=== PATIENT | female | born 1940 | race Caucasian/White ===

== ENCOUNTER 2016-10-16 07:05 | Inpatient (IN) | payer MEDICARE ==
[2016-10-16] VITALS (20 sets, daily range): BP systolic 111–161; BP diastolic 47–77; PULSE 65–85; RESP 12–20; O2SAT 92–100
[~2016-10-16] VITALS: Ht 160 cm; Wt 86.9 kg
--- NOTE | 2016-10-16 07:02 | ED.REPORT ---
HPI-Chest Pain 40 and Over Date of Service October 16, 2016 ED Provider: Justcie Slade DO A 76 year old female with a history of hypertension, high cholesterol, uncontrolled diabetes, and balloon angioplasty to the ostial RCA is brought to the ED via EMS due to chest pain. The pt woke this morning slightly more fatigued than usual, then began experiencing crushing substernal chest pain while standing in the kitchen. This was soon accompanied by nausea. EMS was called and a field EKG taken in the pt's home indicated a STEMI. The pt has taken four 81 mg aspirin but did not take her medications last night, including her insulin. Nursing Notes Stated Complaint: CHEST PAIN Nursing Notes Reviewed: Yes Allergies: Coded Allergies: Penicillins (Verified Allergy, Severe, RASH, 10/07/14) Sulfa (Sulfonamide Antibiotics) (Verified Allergy, Severe, RASH, 10/07/14) clindamycin (Unverified Allergy, Mild, 10/07/14) Uncoded Allergies: SULFA (Allergy, Severe, RASH, 04/05/09) UNKNOWN (Allergy, Mild, 09/09/14) TOOK ANTIBIOTIC, UNSURE OF NAME, GOT RASH. PT WILL CONFIRM Scheduled Amlodipine (Amlodipine) 10 Mg Tablet 10 MG PO HS Aspirin (Aspir 81) 81 Mg Tablet.dr 81 MG PO HS Atenolol (Atenolol) 25 Mg Tablet 25 MG PO HS Atorvastatin Calcium (Atorvastatin Calcium) 20 Mg Tablet 20 MG PO HS Benazepril (Benazepril) 40 Mg Tablet 40 MG PO HS Calcium Carbonate/Vitamin D3 (Calcium 500 + D Tablet) 1 Each Tablet 2 EACH PO HS Celecoxib (Celebrex) 200 Mg Capsule 200 MG PO HS Cetirizine HCl (Zyrtec) 10 Mg Tablet 10 MG PO DAILY Cholecalciferol (Vitamin D3) (Vitamin D3) 5,000 Unit Tablet 10,000 UNIT PO HS Cranberry Fruit (Cranberry) 400 Mg Tablet 400 MG PO HS Folic Acid (Folic Acid) 0.4 Mg Tablet 0.4 MG PO every other day Hydrochlorothiazide (Hydrochlorothiazide) 12.5 Mg Capsule 12.5 MG PO HS Insulin Glargine (Lantus U100 Solostar Insulin Pen) 100 Unit/1 Ml Insuln.pen Unknown Dose SUBQ QPM-INSULIN Insulin Lispro (HumaLOG U100 Insulin Pen) 100 Unit/1 Ml Insuln.pen Unknown Dose SUBQ TID-INSULIN Blood Sugar Lispro Correction <151 0 units 151-175 1 unit 176-200 2 units 201-225 3 units 226-250 4 units 251-275 5 units 276-300 6 units 301-325 7 units 326-350 8 units 351-375 9 units 376-400 10 units >400 12 units Check blood sugars before meals and at bedtime. Use correction factor only before meals. Levothyroxine (Levothyroxine) 112 Mcg Tablet 112 MCG PO DAILY Magnesium (Magnesium) 250 Mg Tablet 250 MG PO BID Metformin ER (Metformin ER) 500 Mg Tab.er.24 1,000 MG PO DAILYWD Nortriptyline (Nortriptyline) 10 Mg Capsule 30 MG PO HS Ubidecarenone (Coq-10) 30 Mg Capsule 60 MG PO DAILY Scheduled PRN Albuterol HFA (Proair HFA) 8.5 Gm Hfa.aer.ad 2 PUFFS IH Q4 PRN PRN For Wheezing Meclizine HCl (Meclizine HCl) 25 Mg Tablet 25 MG PO TID PRN PRN For Dizziness Nitroglycerin SL (Nitrostat) 0.4 Mg Tab.subl 0.4 MG SL Q5MIN PRN PRN For Chest Pain General Time Seen by MD: 07:01 Chief Complaint Chest pain Hx Obtained From: Patient, EMS Arrived By: Ambulance Sudden in Onset?: Yes Onset Occurred: 31 - 45 minutes ago Symptom Duration: Since onset Recent Healthcare: No recent hospitalization, Recent doctor visit Similar Sx Previous: No Past Medical History Past Medical History hypertension asthma high cholesterol UTI hyperlipidemia obesity obstructive sleep apnea tuberculosis uncontrolled diabetes depression arthritis Past Surgical History rotational arthrectomy to the ostial RCA balloon angioplasty to ostial RCA 2015 bilateral arthroscopy right wrist bilateral bunionectomies Reports: Cataract surgery Smoking History Former Smoker Ambulatory Status Independent Review of Systems Respiratory: Denies: Non-productive cough Cardiovascular: Reports: Chest pain GI: Reports: Nausea Musculoskeletal: Denies: Back pain Skin: Denies Rash Complete sys rev & neg: except as marked. Physical Exam Initial Vital Signs Vital Signs (First) Date Time Temp Pulse Resp B/P Pulse Ox O2 Delivery O2 Flow Rate FiO2 10/16/16 07:24 36.4 75 20 161/66 100 Nasal Cannula 10/16/16 07:29 2 Initial VS: Reviewed General/Constitutional: Awake, Alert Distress / Hydration: Positive: Distress moderate Appearance / Presentation: Positive: Obese Respiratory / Chest: Atraumatic, Breath sounds NL, Breath sounds = bilat, No respiratory distress Cardiovascular: Heart rate NL, Regular rhythm, Heart sounds NL Abdomen: Atraumatic, Soft, Non-tender Neck: Atraumatic, Supple, Full range of motion Back: Atraumatic, Full range of motion Lower Extremity / Pelvis / MS: Atraumatic, Full range of motion, No edema Skin: Atraumatic, Color NL, No rash, Warm, Dry Neurologic: Oriented X3, Speech NL, No motor deficits, No sensory deficits Psychiatric: Affect NL, Mood NL Head / Eyes: Atraumatic, Normocephalic, PERRL, EOMI ENT: Atraumatic, Airway patent, Mucous membranes moist Upper Extremity / MS: Atraumatic, Full range of motion Interpretation & Diagnostics Lab Results Interpretation Result Diagram: 10/16/16 0707 10/16/16 0707 Test 10/16/16 07:07 10/16/16 07:25 White Blood Count 7.6th/mm3 (3.8-10.1) Red Blood Count 4.64mil/mm3 (3.90-5.20) Hemoglobin 12.5g/dL (12.0-15.6) Hematocrit 39.1% (35.0-46.0) Mean Corpuscular Volume 84.3fL (81-100) Mean Corpuscular Hemoglobin 26.9pg (27.0-35.0) Mean Corpuscular Hemoglobin Concent 32.0% (32.0-37.0) Red Cell Distribution Width 16.6% (12.3-15.4) Platelet Count 159bil/L (150-400) Neutrophils (%) (Auto) 62.2% (40-74) Lymphocytes (%) (Auto) 26.5% (14-46) Monocytes (%) (Auto) 6.4% (4-12) Eosinophils (%) (Auto) 4.2% (0-5) Basophils (%) (Auto) 0.3% (0-3) Sodium Level 139mEq/L (134-144) Potassium Level 4.2mEq/L (3.5-5.2) Chloride Level 100mEq/L (97-108) Carbon Dioxide Level 22mmol/L (18-29) Blood Urea Nitrogen 18mg/dL (8-27) Creatinine 1.11mg/dL (0.57-1.00) Estimat Glomerular Filtration Rate 68mL/min (>59) Glucose Level 420mg/dL (60-99) Calcium Level 9.5mg/dL (8.5-10.1) Magnesium Level 1.8mg/dL (1.6-2.6) Total Bilirubin 0.3mg/dL (0.0-1.2) Aspartate Amino Transf (AST/SGOT) 18U/L (0-50) Alanine Aminotransferase (ALT/SGPT) 18U/L (0-32) Alkaline Phosphatase 113U/L (25-165) Troponin T 0.010ug/L (0.0-0.011) Total Protein 7.6g/dL (6.4-8.4) Albumin 4.4g/dL (3.4-5.0) Prothrombin Time 10.3sec (8.1-12.5) Prothromb Time International Ratio 0.96ratio Activated Partial Thromboplast Time 22.2sec (22.8-33.0) ECG Interpretation ECG Interpretation: normal sinus rhythm with a rate of 82 ST elevation in II, III, and aVF ST depression in I and aVL consistent with STEMI Time: 07:11 Interpreted by: ED physician X-Ray Chest Interpretation Chest Xray Interpretation: no acute findings Interpretation / Wet Read by: Wet read ED physician Re-Eval/Medical Decision Med Decision/Clinical Course Acute ST elevation [place]. Will be sent to [facility]. Code STEMI and activation of Oyster Washer was initiated immediately upon evaluation of prehospital EKG. Source of Hx: Old records Time of Eval: 07:15 Re-Evaluation/Progress Note: Pt rechecked and medication options are discussed. Time of Eval: 07:19 Re-Evaluation/Progress Note: Pt rechecked, who is stable. Plan for admission to [facility] is discussed. Time of Eval: 07:25 Re-Evaluation/Progress Note: Pt rechecked, who is still experiencing mild pain and appears unfomfortable. Heart rate is 70 and blood pressure is 137/57. Time of Eval: 07:28 Re-Evaluation/Progress Note: Pt rechecked, who is stable. The plan for [facility] admission is further discussed. Consultation #1: Referral / Consult Name: Marcos Moore MD Consulted With: Cardiology Call Returned at: 07:01 Note: Spoke to Dr. Moore, business initiatives manager, regarding pt's case. Dr. Moore is unable to see the pt and recommends consulting with Dr. Espinal. Consultation #2: Referral / Consult Name: Nikki Rowe MD Consulted With: Cardiology Requested Call at: 07:02 Corn Picker: Did not return call Note: Paged Dr. Rowe and attempted cell phone contact without response. Consultation #3: Referral / Consult Name: Marcos Moore MD Consulted With: Cardiology Call Returned at: 07:11 Note: Spoke with Dr. Moore, who agrees to see the pt since Dr. Espinal has not responded. Consultation #4: Referral / Consult Name: Mitchell Underwood MD Consulted With: Cardiology Requested Call at: 07:11 Note: Paged Dr. Underwood, cardiology, and attempted cell phone contact without response. Consultation #5: Referral / Consult Name: Mitchell Underwood MD Consulted With: Cardiology Requested Call at: 07:19 Note: Paged Dr. Underwood and attempted cell phone contact without response. Consultation #6: Referral / Consult Name: Mitchell Underwood MD Consulted With: Cardiology Requested Call at: 07:26 Note: Overhead page for Dr. Underwood. Consultation #7: Referral / Consult Name: Mitchell Underwood MD Consulted With: Cardiology Call Returned at: 07:33 Note: Spoke with Dr. Underwood, cardiology, regarding pt's case. Dr. Underwood will take the pt to the [facility]. Consultation #8: Referral / Consult Name: Mitchell Underwood MD Consulted With: Cardiology Call Returned at: 07:37 Note: Dr. Underwood has spoken to Dr. Moore. Dr. Moore is on his way and Dr. Underwood requests that the pt be sent to the [facility]. Counseled Regarding: Diagnosis, Lab results, Need for admission Discharge & Departure Primary Impression: STEMI (ST elevation myocardial infarction) Involved coronary artery: unspecified coronary artery Qualified Code: I21.3 - ST elevation (STEMI) myocardial infarction of unspecified site Disposition: ADMITTED TO HOSPITAL Discharge Condition All VS Reviewed: Yes Condition: Stable Referrals: Whitney Bobby (PCP) Crit Care Except Billable Proc Time Spent: 30-74 minutes Services Performed: Patient management by me, Time spent at bedside, Reviewing test results, Reviewing imaging, Discussing patient care, Documentation in record Critical Care Notes: See MDM Scribe Attestation Portions of this note were transcribed by Mary Gaston. I, Dr. Slade personally performed the history, physical exam and medical decision-making; I reviewed and confirmed the accuracy of the information in the transcribed note. Signed by: Tamiko Alatorre, 10/16/2016 and 0811. copies to: Whitney Bobby Timothy S DO October 16, 2016 07:02 MARY GASTON October 16, 2016 07:09
[~2016-10-16 07:05] MED LIST: ALBU8.5H2 IH; AMLO10TA3 PO; ASPI-628 PO; ATEN25TA PO; ATOR20TA65 PO; BENA40TA2 PO; CALC-721 PO; CELE200C PO; CETI10TA18 PO; CHOL500011 PO; CRAN400T4 PO; FOLI0.4T2 PO; HYDR12.5 PO; Heparin 5,000 Unit/mL Inj ONE; INSU100I13 SUBQ; INSU100I18 SUBQ; LEVO112T4 PO; MAGN250T PO; MECL-107 PO; METF-495 PO; NITR0.4T SL; NORT10CA PO; Ondansetron 2 mg/mL 2 mL Inj ONE; UBID30CA12 PO
[2016-10-16 07:11] LABS: BASOPHILS % (AUTO) 0.3 % (0-3); EOSINOPHILS % (AUTO) 4.2 % (0-5); MONOCYTES % (AUTO) 6.4 % (4-12); Mean Corpuscular Hemoglobin 26.9 pg (27.0-35.0); Mean Corpuscular Volume 84.3 fL (81-100); NEUTROPHILS % (AUTO) 62.2 % (40-74); Platelet Count 159 bil/L (150-400)
[2016-10-16] MEDS ORDERED: Insulin LISPRO 300 Unit/3 mL Inj SUBQ ONE (07:20)
[2016-10-16] MEDS ORDERED: Heparin 1,000 Units/500 mL NS Premix IV ONE (07:25)
[2016-10-16] MEDS ORDERED: Nitroglycerin 50,000 mcg/250 mL D5W Premix IV ONE (07:25)
[2016-10-16] MEDS ORDERED: 0.9% Sodium Chloride 250 ML ONE (07:25)
[2016-10-16] MEDS ORDERED: Heparin 1,000 Unit/mL 10 mL Inj ONE (07:25)
[2016-10-16] MEDS ORDERED: 0.9% Sodium Chloride 1,000 ML ONE (07:25)
[2016-10-16] MEDS ORDERED: Heparin 5,000 Units/500 mL NS Premix IV ONE (07:25)
[2016-10-16] MEDS ORDERED: NitroPRUSSIDE 25,000 mCg/mL 2 mL Inj IV ONE (07:25)
[2016-10-16 07:34] LABS: INR 0.96 ratio
[2016-10-16 07:35] LABS: TROPONIN T 0.01 ug/L (0.0-0.011)
[2016-10-16 07:46] LABS: Magnesium 1.8 mg/dL (1.6-2.6)
[2016-10-16] MEDS ORDERED: fentaNYL-PF 50 mCg/mL 2 mL Inj ONE (07:48)
--- NOTE | 2016-10-16 08:56 | DI95 ---
[address] [address] INTERVENTIONAL CARDIAC CATHETERIZATION PATIENT: DEANDRE CLIFTON : 1940 MR#: [id number] ADMIT: 10/16/2016 JOB ID: [id number] DATE: 10/16/2016 PROCEDURES: 1. Selective right and left coronary angiography. 2. Percutaneous intervention on the circumflex. 3. Left heart catheterization. INDICATION: Acute inferior [place]. PROCEDURAL DETAILS: The reader is referred to the procedure log as are the coders. Briefly 6-Azeri system right femoral approach, standard Ramses catheters and a wire guide for intervention. ANGIOGRAPHIC FINDINGS: Heavy calcification of the AV groove was noted. Moderate calcification of the coronaries is also noted on fluoroscopy. 1. Left main showed no significant disease. 2. LAD is a moderate caliber transapical vessel. In its mid to distal segment, it has about a 40% lesion. The rest of the vessel has mild luminal irregularities. No critical stenosis is noted. 3. Circumflex is a large caliber vessel. It is totally occluded past the take-off of the second obtuse marginal branch. 4. The ramus intermedius is a small caliber vessel. It has a 40%-50% lesion in its proximal segment. 5. Right coronary artery is a dominant vessel in the sense that it gives off the PDA. Most of the posterolateral circulation is off the circumflex. It has an ostial 70%-80% lesion followed by a poststenotic aneurysmal area which is fairly small in length. The rest of the vessel has mild disease. 6. Left heart catheterization revealed an LVEDP of 25. There was no gradient upon pullback. INTERVENTIONAL REPORT: We then proceeded ahead with an intervention on the circumflex. A Voda guide was used. A Run-through wire was used to cross this lesion. We were successfully able to get into the fourth obtuse marginal branch. The third obtuse marginal branch is a small caliber, about a 1.5 mm vessel. This was seen on prior angiograms. At one time, we were able to open up this vessel as well, but because of balloon angioplasty, there was distal embolization and this branch showed BOB-1 flow throughout. The second obtuse marginal branch also showed BOB-1 flow, which responded to additional ballooning. The second obtuse marginal branch was wired and then balloon angioplasty with a 2.0 balloon was done in the ostium. Following that, there was good BOB-3 flow in the second OM branch. Finally we stented distally with a 2.5 x 12 mm Xience drug-coated stent and in an overlapping manner, a second 3.0 x18 mm stent was deployed. The very proximal part of the 3.0 stent was post dilated to 3.5 mm with a noncompliant balloon. They were delivered at 16 atmospheres. Final angiographic results were good. In summary, successful intervention on the infarct-related circumflex. She has ostial RCA lesion and this can be dealt with at a later date.
--- NOTE | 2016-10-16 09:53 | CONS ---
[address] [address] CONSULTATION REPORT PATIENT: DEANDRE CLIFTON : 1940 MR#: [id number] ADMIT: 10/16/2016 JOB ID: [id number] DATE OF SERVICE: 10/16/2016 REQUESTING PHYSICIAN: Justice Elizondo DO CHIEF COMPLAINT: Chest discomfort. HISTORY OF PRESENT ILLNESS: This is a 73-year-old lady with history of diabetes, hypertension and dyslipidemia, as well as prior history of tobacco use, presented to the emergency department complaining of chest discomfort. An [place] EKG suggested an inferior [place]. I was contacted for an urgent intervention. I saw the patient in the public works laborer. The patient was somewhat irritable, did not exactly remember when her chest discomfort started. Upon talking to her son, it appears that she had not been feeling well for the last two days. On Saturday, her [id number] noted her to be very sick, so it is possible that the patient started infarcting a few days ago. She described the pain as a pressure in her chest that went into her neck. It was heavier than anything she has experienced previously. She finally decided to seek medical attention. An EKG done in the ED confirmed inferior [place]. PAST MEDICAL HISTORY: Diabetes, hypertension, dyslipidemia. MEDICATIONS AT HOME: As far as I can tell, she was on aspirin and atenolol, amlodipine, benazepril, atorvastatin, albuterol inhaler, calcium, and folic acid. Of note, she was given 600 mg of Plavix and 5000 of heparin, along with aspirin in the ED. ALLERGIES: She is allergic to SULFA and PENICILLIN. PERSONAL HISTORY: She has a history of 20 pack year of smoking. She quit smoking greater than 20 years ago. FAMILY HISTORY: Negative for premature coronary artery disease. REVIEW OF SYSTEMS: Comprehensive review of system was done and what is as per HPI. Pertinent negatives are there is no history of GI or bleeding. No upcoming surgeries. EXAMINATION: Overweight lady, in moderate distress. Pulse 80, blood pressure 180/70. Neck: Supple. No JVD. Chest: Clear. Heart: Anteriorly, heart sounds S1, S2, regular. No gallops. A soft ejection systolic murmur is heard at the upper sternal border. Abdomen: Soft. Extremities negative for CCE. Femoral pulses are 2+. Distal pulses are diminished. SEWAGE RETICULATION DRAFTING OFFICER: Alert and oriented. LABORATORY DATA: We did not have access to her current labs, but previous labs suggests a normal creatinine. ASSESSMENT AND PLAN: This lady presents with an acute inferior myocardial infarction. She probably has been having stuttering angina for the last few days. She had an intervention on her circumflex. She has already been started on dual antiplatelet therapy. I will be admitting her to the cardiac floor. Dr. Underwood should be assuming her care, and the hospitalist team will get involved as well.
[2016-10-16] MEDS ORDERED: 0.9% Sodium Chloride 250 ML BOLUS IV PRN (11:10)
[2016-10-16] MEDS ORDERED: Albuterol 2.5 mg/3 mL Inhalation Solution NEB ONE (11:10)
[2016-10-16] MEDS ORDERED: Atropine 1 mg/10 mL (Code) Syringe IVPUSH PRN (11:10)
[2016-10-16] MEDS ORDERED: 0.9% Sodium Chloride 400 ML (4 HRS) IV ONE (11:10)
[2016-10-16] MEDS ORDERED: Ondansetron 2 mg/mL 2 mL Inj IVPUSH PRN (11:10)
[2016-10-16] MEDS ORDERED: Sodium Chloride LOK Flush 10 mL Syringe IVFLUSH PRN (11:10)
--- NOTE | 2016-10-16 11:15 | NUR ---
transferred to [facility] with shoes and no other belongings. pt is a&ox3 at this time and denies pain/nausea. right groin is dry and intact, with very minimal oozing. there is a small half dollar size nodule that is present on both sides and appears to be anatomical in nature. md aware. bedside report to junior penn rn.
--- NOTE | 2016-10-16 12:36 | NUR ---
Arrived to unit Pt arrived to unit at 1145. Transferred by bed. Denied pain. Groin site was checked with Lakesha SERNA, no signs of bleeding. Vital signs were checked. At 1215 she was assisted in sitting up, groin site was checked at again. Then the patient was assisted with walking to the bathroom, again groin site was checked when she returned to bed. No signs of bleeding/oozing at groin site. Pt complained of dizziness when she got up, put back on 2L of O2, she reported feeling better after returning to bed. Blood sugar was 344, paged.
[2016-10-16] MEDS: metFORMIN ER 500 mg ER24 Tablet PO SCH (17:30)
[2016-10-16] MEDS ORDERED: Dextrose 50% Water 50 mL Inj IV PRN (17:35)
[2016-10-16] MEDS: Insulin Human REGular 300 Unit/3 mL Inj SUBQ SCH ×2 (18:10→22:20)
--- NOTE | 2016-10-16 18:25 | NUR ---
Blood sugar Blood sugar was 344 before lunch. MD was paged. Patient ate lunch and afterwards her blood sugar was checked and was 294. Awaiting response from MD. Blood sugar checked before dinner and was 264. Order for insulin was obtained and 3 units of regular insulin was given as per sliding scale. Continue to monitor.
[2016-10-16] MEDS ORDERED: Albuterol 2.5 mg/3 mL Inhalation Solution NEB PRN (20:00)
--- NOTE | 2016-10-16 23:08 | PCM.HPMED ---
Subjective Date of Service October 16, 2016 Primary Provider: Admitting Physician: Mitchell Underwood MD Primary Care Physician: Whitney Bobby Attending Physician: Mitchell Underwood MD Chief Complaint: Chest pain History of Present Illness: The patient is a pleasant 76-year-old white female with a history of hypertension, high cholesterol, uncontrolled diabetes and history of balloon angioplasty to the ostial RCA who rarely sleeps at night and was up early in the morning getting ready to clean cantaloupe for lunch for her family. Patient then felt more fatigued and he usual and began experiencing crushing substernal chest pain after drinking some cold water while standing in the kitchen. The patient felt she was going to pass out so she called 911 and called her son Magan. The patient took 481 mg aspirin and EMS services brought the patient to [facility] emergency room. The patient was found to have an acute inferior wall myocardial infarction and EKG was taken for an urgent cardiac catheterization by Dr. Haro the patient underwent successful intervention on the infarct-related circumflex. She also has an ostial RCA lesion and this was felt to be best dealt with at a later date. The patient was admitted to the PCC unit and the hospitalist service was consulted for evaluation and treatment recommendations. Review of Systems: Dental: Patient is in no apparent distress at this time and in general has been feeling hungry with a headache throughout the day until 3:00. Now she is feeling much better. HEENT: Patient had a headache earlier, patient has no diplopia, patient has had changes in her vision in her left eye, and the cause is gone undiagnosed. Patient has had bilateral cataract surgery. Patient has no problems with their ears, nose or throat. Patient has no known dental problems. Patient has no pharyngitis or history of thrush. Neck: Patient has degenerative disease and arthritis in her neck with pain shooting down to her shoulder and left arm. Patient has neuropathy in her hands which she attributes to her neck. Pulmonary: Patient has dyspnea on exertion, with no shortness of breath at rest , no cough, no expectoration of sputum. Patient has no pleurisy. Patient has no chest pain at present time after cardiac catheterization. Patient has no history of asthma or COPD. Cardiovascular: Patient has no chest pain. Patient has no history of heart murmur. Patient has no palpitations. Patient has no history of myocardial infarction. Patient has no history of coronary artery disease. Gastrointestinal: Patient has no history of hepatitis A, B or C. Patient has no history of peptic ulcer disease. Patient has no history of gastroesophageal reflux disease. Patient has no history of nausea, vomiting, or diarrhea. Patient has no history of hematemesis, hematochezia, or melena. Patient has no history of colitis. Renal: Patient has no history of kidney disease. No history of kidney stones. Genitourinary: Patient has no history of dysuria, frequency, or incontinence. Patient has no previous history of genitourinary problems. Musculoskeletal: Patient has no history of muscular skeletal problems. Neurologic: Patient has no history of stroke, no history of seizure, no history of TIA. Psychiatric: Patient has no history of psychiatric problems. The remainder of the entire review of systems was reviewed with patient and is as mentioned above otherwise negative. Allergies Coded Allergies: Penicillins (Verified Allergy, Severe, RASH, 10/07/14) Sulfa (Sulfonamide Antibiotics) (Verified Allergy, Severe, RASH, 10/07/14) clindamycin (Unverified Allergy, Mild, 10/07/14) Uncoded Allergies: SULFA (Allergy, Severe, RASH, 04/05/09) UNKNOWN (Allergy, Mild, 09/09/14) TOOK ANTIBIOTIC, UNSURE OF NAME, GOT RASH. PT WILL CONFIRM Home Medications Scheduled Amlodipine (Amlodipine) 10 Mg Tablet 10 MG PO HS Aspirin (Aspir 81) 81 Mg Tablet.dr 81 MG PO HS Atenolol (Atenolol) 25 Mg Tablet 25 MG PO HS Atorvastatin Calcium (Atorvastatin Calcium) 20 Mg Tablet 20 MG PO HS Benazepril (Benazepril) 40 Mg Tablet 40 MG PO HS Calcium Carbonate/Vitamin D3 (Calcium 500 + D Tablet) 1 Each Tablet 2 EACH PO HS Celecoxib (Celebrex) 200 Mg Capsule 200 MG PO HS Cetirizine HCl (Zyrtec) 10 Mg Tablet 10 MG PO DAILY Cholecalciferol (Vitamin D3) (Vitamin D3) 5,000 Unit Tablet 10,000 UNIT PO HS Cranberry Fruit (Cranberry) 400 Mg Tablet 400 MG PO HS Folic Acid (Folic Acid) 0.4 Mg Tablet 0.4 MG PO every other day Hydrochlorothiazide (Hydrochlorothiazide) 12.5 Mg Capsule 12.5 MG PO HS Insulin Glargine (Lantus U100 Solostar Insulin Pen) 100 Unit/1 Ml Insuln.pen Unknown Dose SUBQ QPM-INSULIN Insulin Lispro (HumaLOG U100 Insulin Pen) 100 Unit/1 Ml Insuln.pen Unknown Dose SUBQ TID-INSULIN Blood Sugar Lispro Correction <151 0 units 151-175 1 unit 176-200 2 units 201-225 3 units 226-250 4 units 251-275 5 units 276-300 6 units 301-325 7 units 326-350 8 units 351-375 9 units 376-400 10 units >400 12 units Check blood sugars before meals and at bedtime. Use correction factor only before meals. Levothyroxine (Levothyroxine) 112 Mcg Tablet 112 MCG PO DAILY Magnesium (Magnesium) 250 Mg Tablet 250 MG PO BID Metformin ER (Metformin ER) 500 Mg Tab.er.24 1,000 MG PO DAILYWD Nortriptyline (Nortriptyline) 10 Mg Capsule 30 MG PO HS Ubidecarenone (Coq-10) 30 Mg Capsule 60 MG PO DAILY Scheduled PRN Albuterol HFA (Proair HFA) 8.5 Gm Hfa.aer.ad 2 PUFFS IH Q4 PRN PRN For Wheezing Meclizine HCl (Meclizine HCl) 25 Mg Tablet 25 MG PO TID PRN PRN For Dizziness Nitroglycerin SL (Nitrostat) 0.4 Mg Tab.subl 0.4 MG SL Q5MIN PRN PRN For Chest Pain PMH Hypertension Asthma High cholesterol Hyperlipidemia Obesity: Uncontrolled diabetes 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 Patient is always had negative chest x-rays for TB screening. Patient denies the following even though they are part of her computerized record: She denies ever having been diagnosed with obstructive sleep apnea She denies ever having clinical depression Surgical History Patient had a rotational arthrectomy to the ostial RCA Patient had balloon angioplasty to the ostial RCA in 2014 Patient had bilateral arthroscopy of both knees Patient had a growth removed from her right wrist patient had bilateral bunionectomies, 1 on each. Patient had bilateral cataract surgery. Family History Patient's mother at the age of 40. During childbirth she developed bowel rupture and peritonitis. The patient's father in his 60s at the age of 66 or 67 from a cerebrovascular accident. Patient had 3 brothers who one the oldest from lung cancer one from COPD and one from an AVM in his brain that ruptured The patient had 6 sisters 4 of which have . One of older age, one from COPD and myocardial infarction, one after , one in a motor vehicle accident at the age of 19 The patient has 2 sisters who are alive. One in [place] who has heart disease and has had a pacemaker and has had atrial fibrillation. One in [place] who has multiple problems including depression, anxiety, fibromyalgia, tremor, glaucoma, history of meningitis and history of smoking. 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 She then quit.) Smoking Status: Former Smoker Living Arrangement: Alone Additional Information Patient was born in [place], [place]. [place]. However, her father developed tuberculosis in was placed in a sanitarium in [place]. At that time the patient's uncle took her and her siblings back to [place]. When patient's father got out of the sanitarium he brought the family back to [place] [facility]. Patient went to high school in [place] and graduated. She went to [employer] to be collagen in [employer] college getting a degree in social work when she was in her 40s. She was stated on mom up until that time. 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 Her had a myocardial infarction at the age is 36 and had 2 coronary artery bypass graft surgeries and ended up having a heart transplant and at the age of 66 and 2005. The patient has been a since then and lives alone in [place] [facility]. Exam Vital Signs Vital Sign - Last Date Time Temp Pulse Resp B/P Pulse Ox O2 Delivery O2 Flow Rate FiO2 10/16/16 21:55 Supplement Oxygen 10/16/16 21:55 37.0 85 20 150/77 96 10/16/16 15:37 2.00 Exam General: Patient is in no apparent distress. HEENT: Head is atraumatic and normocephalic. Eyes: Pupils are equally round and reactive to light and accommodation. Extraocular muscles are intact. Sclera are white, anicteric. Subconjunctival mucosa is pink. Ears and nose are unremarkable. Oropharynx: There is no mucosal lesions, there is no thrush, there is no pharyngitis. Neck: Is supple, there are no nodes, or masses or tenderness. Chest: Is clear to auscultation and percussion. There are no rales, rhonchi, wheezes or rubs. Heart: Rate, rhythm is regular. There is a 2/6 systolic ejection murmur heard best at the left sternal border. There is no rub or gallop. Abdomen: Good bowel sounds are present. Abdomen is obese, soft, nontender, no organomegaly or masses were appreciated. Extremities: Are symmetrical and well perfused. There is no edema, there is no cellulitis, no rash. Neurologic: There are no focal neurological deficits. Cranial nerves II through XII are intact. There are no sensory or motor deficits. Psychiatric: Patients mood is calm and shows no sign of agitation. Genital: Deferred Rectal: Deferred Lab and Diagnostics Result Diagram: 10/16/1670610/16/16706 Assessment & Plan The patient is a pleasant 76-year-old white female with a history of hypertension, high cholesterol, uncontrolled diabetes and history of balloon angioplasty to the ostial RCA who rarely sleeps at night and was up early in the morning getting ready to clean cantSpavistae for lunch for her family. Patient then felt more fatigued and he usual and began experiencing crushing substernal chest pain after drinking some cold water while standing in the kitchen. The patient felt she was going to pass out so she called 911 and called her son Magan. The patient took 481 mg aspirin and EMS services brought the patient to [facility] emergency room. The patient was found to have an acute inferior wall myocardial infarction and EKG was taken for an urgent cardiac catheterization by Dr. Haro the patient underwent successful intervention on the infarct-related circumflex. She also has an ostial RCA lesion and this was felt to be best dealt with at a later date. The patient was admitted to the PCC unit and the hospitalist service was consulted for evaluation and treatment recommendations. # Acute inferior wall myocardial infarction, present at the time of admission. Active - Status post successful intervention on the infarct-related circumflex artery - Patient also has an ostial RCA lesion which cardiology feels need to be dealt with at a later date. - Post intervention care and stenting per cardiology. I have discussed case with Dr. Underwood - Continue telemetry monitoring # Hypertension - Continue cardiac meds per Dr. Underwood # Hyperlipidemia - Continue statin # Uncontrolled diabetes - Diabetic diet - Sliding-scale insulin coverage # Tobacco abuse - She will be encouraged to quit tobacco # History of asthma - Close observation - We will continue albuterol treatments. Thank you very much for this very interesting consultation. We will follow. Disposition: Patient has had an acute myocardial infarction and is likely to be here more than 2 mid dates and therefore was admitted as an inpatient. Pain Evaluation: Adequate Pain Control GI Prophylaxis: Not indicated VTE Prophylaxis: Other (as per cardiology) Resuscitation Status: CPR: Attempt Resuscitation Serg Milner MD October 16, 2016 23:08
[2016-10-17] VITALS (7 sets, daily range): BP systolic 113–135; BP diastolic 62–76; PULSE 72–110; RESP 16–20; O2SAT 93–98
--- NOTE | 2016-10-17 05:55 | NUR ---
Tele Pt converted to Afib HR 110's to 120's around 0300 and confirmed by EKG. Pt asymptomatic with no CP or SOB. notified and orders for 25mg metoprolol given and administered. Pt currently in Afib HR 90's to 110's. notified again and awaiting reply. VSS.
[2016-10-17] MEDS ORDERED: Diltiazem 5 mg/mL 5 mL Inj IV ONE (07:35)
[2016-10-17] MEDS ORDERED: UBIDECARENONE 60 MG PO SCH (08:30)
[2016-10-17] MEDS ORDERED: ASPI-973 PO (08:43)
[2016-10-17] MEDS: Insulin Human REGular 300 Unit/3 mL Inj SUBQ SCH ×4 (08:43→21:47)
[2016-10-17] MEDS ORDERED: CETI-343 PO (08:45)
[2016-10-17] MEDS ORDERED: MECL-114 PO (08:45)
--- NOTE | 2016-10-17 09:34 | DRSVH ---
PROCEDURE: X-RAY CHEST ONE VIEW, PORTABLE ([id number]) INDICATIONS: CHEST PAIN TECHNIQUE: One view of the chest was acquired. COMPARISON: [facility], , CHEST 1VW (PORTABLE), 11/07/2010, 16:02. FINDINGS: Surgical changes and devices: None. Lungs and pleura: No pleural effusions or pneumothorax. Interstitial pulmonary opacities inferiorly consistent with scarring, atelectasis, or less likely infection. No lobar consolidation.. Mediastinum: Mediastinal contours appear normal. Heart size is normal. Bones and chest wall: No suspicious bony lesions. Overlying soft tissues appear unremarkable. IMPRESSION: Bibasilar interstitial opacities consistent with scarring, fibrosis, less likely early in fection. Otherwise normal chest. Dictated by: Tello Yee M.D. on 10/16/2016 at 8:22 Approved by: Tello Yee M.D. on 10/16/2016 at 8:24
--- NOTE | 2016-10-17 10:40 | PCM.PNCARD ---
Subjective Date of service October 17, 2016 Chief Complaint Recent inferior STEMI History of Present Illness Patient still feels a little sore from her CP yesterday but feels much better in comparison to yesterday morning. She apparently she went into afib with a little RVR around 245am and was given IV diltiazem and eventually converted back to sinus mechanism. Constitutional: Denies: Fever, Sweats ENT: Denies: Ear Discharge, Ear Pain Eyes: Denies: Blurred Vision, Conjunctive Inflammation Cardiovascular: Reports: Chest Pain (soreness more than pressure/pain), Irregular Heart Rate, Palpitations, Rapid Heart Rate, Denies: SOB on Exertion Respiratory: Denies: Cough, Shortness of Breath, Snoring Gastrointestinal: Denies: Abdominal Pain, Black tarry stools, Blood in stool ( red) Genitourinary: Denies: No burning or pain with urination Neurological: Denies: Change in LOC, Confusion, Dizziness Endocrine: Reports: Blood Glucose Review Exam Vital Signs Vital Sign - Last Date Time Temp Pulse Resp B/P Pulse Ox O2 Delivery O2 Flow Rate FiO2 10/17/16 03:58 36.6 110 20 135/74 93 Room Air 10/16/16 15:37 2.00 Intake and Output 10/16/16 10/16/16 10/17/16 Cumulative From/Thru 15:00 23:00 07:00 10/16/16 07:24 - 10/17/16 05:37 Intake Total 400 ml 313 ml 713 ml Output Total 900 ml 900 ml Balance 400 ml -587 ml -187 ml Intake Oral 313 ml 313 ml IV Total 400 ml 400 ml Output Urine Total 900 ml 900 ml # Bowel Movements 0 0 General: Pleasant Cooperative Moderately obese Skin: Warm & dry to touch Head: Normocephalic Eye: EOMS intact Ears, Nose & Throat: Ears no gross abnormalities Nose no gross abnormalities Neck: Nuchal obesity:JVP assess difficult Chest: Clear auscultation w/o rales/wheeze Cardiac: No murmurs, gallops or rubs Regular rhythm Abdomen: No bruits Obese Neurological: Alert & oriented Psychological: Affect & interaction appropriate Lab and Diagnostics Labs CBC Test 10/16/16 07:07 White Blood Count 7.6th/mm3 (3.8-10.1) Red Blood Count 4.64mil/mm3 (3.90-5.20) Hemoglobin 12.5g/dL (12.0-15.6) Hematocrit 39.1% (35.0-46.0) Mean Corpuscular Volume 84.3fL (81-100) Mean Corpuscular Hemoglobin 26.9pg (27.0-35.0) Mean Corpuscular Hemoglobin Concent 32.0% (32.0-37.0) Red Cell Distribution Width 16.6% (12.3-15.4) Platelet Count 159bil/L (150-400) Neutrophils (%) (Auto) 62.2% (40-74) Lymphocytes (%) (Auto) 26.5% (14-46) Monocytes (%) (Auto) 6.4% (4-12) Eosinophils (%) (Auto) 4.2% (0-5) Basophils (%) (Auto) 0.3% (0-3) CMP Test 10/16/16 07:07 10/17/16 03:00 Hemoglobin A1c 7.9% Total Bilirubin 0.3mg/dL Aspartate Amino Transf (AST/SGOT) 18U/L Alanine Aminotransferase (ALT/SGPT) 18U/L Alkaline Phosphatase 113U/L Troponin T 0.010ug/L Total Protein 7.6g/dL Albumin 4.4g/dL Sodium Level 138mEq/L Potassium Level 4.4mEq/L Chloride Level 102mEq/L Carbon Dioxide Level 23mmol/L Blood Urea Nitrogen 10mg/dL Creatinine 0.92mg/dL Estimat Glomerular Filtration Rate 85mL/min Glucose Level 208mg/dL Calcium Level 9.2mg/dL Magnesium Level 1.8mg/dL Result Diagram: 10/16/16 0707 10/17/16 0300 Additional Diagnostics: INTERVENTIONAL CARDIAC CATHETERIZATION PATIENT: DEANDRE CLIFTON : 1940 MR#: [id number] ADMIT: 10/16/2016 JOB ID: [id number] DATE: 10/16/2016 PROCEDURES: 1. Selective right and left coronary angiography. 2. Percutaneous intervention on the circumflex. 3. Left heart catheterization. INDICATION: Acute inferior MA. PROCEDURAL DETAILS: The reader is referred to the procedure log as are the coders. Briefly 6-Liberian system right femoral approach, standard Ramses catheters and a wire guide for intervention. ANGIOGRAPHIC FINDINGS: Heavy calcification of the AV groove was noted. Moderate calcification of the coronaries is also noted on fluoroscopy. 1. Left main showed no significant disease. 2. LAD is a moderate caliber transapical vessel. In its mid to distal segment, it has about a 40% lesion. The rest of the vessel has mild luminal irregularities. No critical stenosis is noted. 3. Circumflex is a large caliber vessel. It is totally occluded past the take-off of the second obtuse marginal branch. 4. The ramus intermedius is a small caliber vessel. It has a 40%-50% lesion in its proximal segment. 5. Right coronary artery is a dominant vessel in the sense that it gives off the PDA. Most of the posterolateral circulation is off the circumflex. It has an ostial 70%-80% lesion followed by a poststenotic aneurysmal area which is fairly small in length. The rest of the vessel has mild disease. 6. Left heart catheterization revealed an LVEDP of 25. There was no gradient upon pullback. INTERVENTIONAL REPORT: We then proceeded ahead with an intervention on the circumflex. A Voda guide was used. A Run-through wire was used to cross this lesion. We were successfully able to get into the fourth obtuse marginal branch. The third obtuse marginal branch is a small caliber, about a 1.5 mm vessel. This was seen on prior angiograms. At one time, we were able to open up this vessel as well, but because of balloon angioplasty, there was distal embolization and this branch showed BOB-1 flow throughout. The second obtuse marginal branch also showed BOB-1 flow, which responded to additional ballooning. The second obtuse marginal branch was wired and then balloon angioplasty with a 2.0 balloon was done in the ostium. Following that, there was good BOB-3 flow in the second OM branch. Finally we stented distally with a 2.5 x 12 mm Xience drug-coated stent and in an overlapping manner, a second 3.0 x18 mm stent was deployed. The very proximal part of the 3.0 stent was post dilated to 3.5 mm with a noncompliant balloon. They were delivered at 16 atmospheres. Final angiographic results were good. In summary, successful intervention on the infarct-related circumflex. She has ostial RCA lesion and this can be dealt with at a later date. Assessment & Plan Problems: (1) ST elevation myocardial infarction (STEMI) of inferoposterior wall Plan: Resolved. S/P MADDISON x2 to LCx/OM artery. Echo is pending. Patient's heart meds have been changed to metoprolol tartrate, lisinopril, ASA, and clopidogrel. Patient needs to ambulate in hallway today and if she does not have any further significant arrhythmias overnight then she may go home tomorrow. She will need to follow up with Dr. Lao in 3-4 weeks. I will follow up on her echo and if there is any significant abnormalities that would warrant changes with her discharge meds then I will add an addendum to today's progress note. She also has residual RCA ostial stenosis which can be dealt with as an outpatient as per Dr. Moore. Discharge meds: Metoprolol tartrate 25 mg BID ASA 81 mg once a day Plavix 75 mg once a day Atorvastatin 40 mg po qhs Lisinopril 5 mg once a day Please give at least 2 months supply. Status: Resolved ICD Code: I21.19 (2) Paroxysmal a-fib Plan: Resolved. No prior hx of afib. Could have been 2/2 to recent STEMI. No anticoagulation for now but she might deserve an outpatient court monitor to see if she has recurrent afib. If she does, then would recommend warfarin or NOAC since she does have significant risk factors for cardioembolic stroke ( Age, DM, HTN, ?EF echo pending). Status: Resolved ICD Code: I48.0 (3) CAD (coronary artery disease) Qualifiers: Coronary Disease-Associated Artery/Lesion type: [place] artery [place] vs. transplanted heart: [place] heart Associated angina: without angina Qualified Code: I25.10 - Atherosclerotic heart disease of 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 I have restarted her long acting insulin. Status: Chronic ICD Code: E11.9 (5) HTN (hypertension) Qualifiers: Hypertension type: essential hypertension Qualified Code: I10 - Essential (primary) hypertension Plan: We have switched her atenolol and benazepril to metoprolol and lisinopril. Status: Chronic ICD Code: I10 (6) Hyperlipidemia, mixed Plan: She will need to increase her statin dosage from 20 to 40 mg po qhs. Status: Chronic ICD Code: E78.2 Pain Evaluation: Adequate Pain Control GI Prophylaxis: Not indicated VTE Prophylaxis: Other (as per cardiology) Resuscitation Status: CPR: Attempt Resuscitation Time spent 30 minutes Mitchell Underwood MD October 17, 2016 10:40
--- NOTE | 2016-10-17 14:12 | NUR ---
Cardiac.. Given Cardizem IVP as ordered and pt soon after converted to Sinus Rhythm at 0905. R groin site remains stable and pt has been up amb independently at the bedside. Currently has echo in progress.
--- NOTE | 2016-10-17 15:54 | PCM.PNMED ---
Subjective Date of Service October 17, 2016 Subjective Patient is feeling a little better. She is concerned that she had an episode of atrial fibrillation with rapid ventricular response last evening. She was asymptomatic during this episode. Patient has no other new complaints. Exam Vital Signs Vital Sign - Last Date Time Temp Pulse Resp B/P Pulse Ox O2 Delivery O2 Flow Rate FiO2 10/17/16 12:09 36.8 81 18 124/76 96 Room Air 10/16/16 15:37 2.00 Intake and Output 10/16/16 10/16/16 10/17/16 Cumulative From/Thru 15:00 23:00 07:00 10/16/16 07:24 - 10/17/16 05:37 Intake Total 400 ml 313 ml 713 ml Output Total 900 ml 900 ml Balance 400 ml -587 ml -187 ml Intake Oral 313 ml 313 ml IV Total 400 ml 400 ml Output Urine Total 900 ml 900 ml # Bowel Movements 0 0 Exam General: Patient is in no apparent distress. She was on the phone with the kitchen ordering her dinner and tomorrow's breakfast from the menu. HEENT: Head is atraumatic and normocephalic. Eyes: Pupils are equally round and reactive to light and accommodation. Extraocular muscles are intact. Sclera are white, anicteric. Subconjunctival mucosa is pink. Ears and nose are unremarkable. Oropharynx: There is no mucosal lesions, there is no thrush, there is no pharyngitis. Neck: Is supple, there are no nodes, or masses or tenderness. Chest: Is clear to auscultation and percussion. There are no rales, rhonchi, wheezes or rubs. Heart: Rate, rhythm is regular. There is a 2/6 systolic ejection murmur heard best at the left sternal border. There is no rub or gallop. Abdomen: Good bowel sounds are present. Abdomen is obese, soft, nontender, no organomegaly or masses were appreciated. Extremities: Are symmetrical and well perfused. There is no edema, there is no cellulitis, no rash. Neurologic: There are no focal neurological deficits. Cranial nerves II through XII are intact. There are no sensory or motor deficits. Psychiatric: Patients mood is calm and shows no sign of agitation. Genital: Deferred Rectal: Deferred Lab and Diagnostics Result Diagram: 10/16/16 0707 10/17/16 0300 X-Rays, CTs and MRIs PROCEDURE: X-RAY CHEST ONE VIEW, PORTABLE ([id number]) INDICATIONS: CHEST PAIN TECHNIQUE: One view of the chest was acquired. COMPARISON: [facility], , CHEST 1VW (PORTABLE), 11/07/2010, 16:02. FINDINGS: Surgical changes and devices: None. Lungs and pleura: No pleural effusions or pneumothorax. Interstitial pulmonary opacities inferiorly consistent with scarring, atelectasis, or less likely infection. No lobar consolidation.. Mediastinum: Mediastinal contours appear normal. Heart size is normal. Bones and chest wall: No suspicious bony lesions. Overlying soft tissues appear unremarkable. IMPRESSION: Bibasilar interstitial opacities consistent with scarring, fibrosis , less likely early infection. Otherwise normal chest. Dictated by: Tello Yee M.D. on 10/16/2016 at 8:22 Approved by: Tello Yee M.D. on 10/16/2016 at 8:24 Cardiac Echo Impressions Pending Assessment & Plan The patient is a pleasant 76-year-old white female with a history of hypertension, high cholesterol, uncontrolled diabetes and history of balloon angioplasty to the ostial RCA who rarely sleeps at night and was up early in the morning getting ready to clean cantaloupe for lunch for her family. Patient then felt more fatigued and he usual and began experiencing crushing substernal chest pain after drinking some cold water while standing in the kitchen. The patient felt she was going to pass out so she called 911 and called her son Magan. The patient took 481 mg aspirin and EMS services brought the patient to [facility] emergency room. The patient was found to have an acute inferior wall myocardial infarction and EKG was taken for an urgent cardiac catheterization by Dr. Haro the patient underwent successful intervention on the infarct-related circumflex. She also has an ostial RCA lesion and this was felt to be best dealt with at a later date. The patient was admitted to the PCC unit and the hospitalist service was consulted for evaluation and treatment recommendations. # Acute inferior-posterior wall ST elevated myocardial infarction, present at the time of admission. Active - Status post successful intervention on the infarct-related circumflex artery. With drug-eluting stents placed in the circumflex and obtuse marginal by Dr. Haro. - Patient also has an ostial RCA lesion which cardiology feels need to be dealt with at a later date. - Post intervention care and stenting per cardiology. I have discussed case with Dr. Underwood - Continue telemetry monitoring # Paroxysmal atrial fibrillation last evening, resolved. - Continue close observation with telemetry monitoring overnight - Patient asymptomatic during the episode. # Hypertension - Continue cardiac meds per Dr. Underwood # Hyperlipidemia - Continue statin # Uncontrolled diabetes - Diabetic diet - Sliding-scale insulin coverage - Now that the patient is eating her normal diet will restart her home Lantus insulin 50 units subcutaneous daily at bedtime. # Tobacco abuse - She will be encouraged to quit tobacco # History of asthma - Close observation - We will continue albuterol treatments. Thank you very much for this very interesting consultation. We will follow. Disposition: Patient will likely be discharged home in a.m. if stable. Pain Evaluation: Adequate Pain Control GI Prophylaxis: Not indicated VTE Prophylaxis: Other (as per cardiology) Resuscitation Status: CPR: Attempt Resuscitation Goldens BridgeSerg MD October 17, 2016 15:54
--- NOTE | 2016-10-17 16:21 | NUR ---
Social Work-initial assessment/readiness for discharge: Data:See initial assessment. Pt is a 76 y/o female who was admitted on 10/16/16 for chest pain per H&P. Pt's insurance is [employer] and PCP is Whitney Bobby MD. EMR reviewed. Pt's readmission score is 4. SW met with pt and grandson at bedside, SW role explained. Pt is alert and oriented x3. Pt resides at home with her son who works during the day where she remains independent with ADLS. Pt does not drive an does not use any DME. Pt has no HH or SNF history. Pt has no [facility] care or VA benefits. SW discussed DPOA/advanced directive, pt declines any information at this time. Per RN notes, pt has been up independent in her room. Pt's family to provide transport home. SW provided phone number and plan on white board in room. No anticipated discharge needs. SW will continue to follow if needs arise. Assessment:Pt who is independent at baseline. Plan:Pt to discharge home when medically stable via POV. No anticipated discharge needs. SW will continue to follow if needs arise. BOB Lyman Addendum: 10/17/16 at 1625 by BRYANNA VALE Amended: Links added.
[2016-10-17] MEDS: metFORMIN ER 500 mg ER24 Tablet PO SCH (18:10)
[2016-10-17] MEDS ORDERED: Insulin GLARgine 100 Unit/mL Syringe SUBQ SCH (21:00)
[2016-10-18 00:17] VITALS: BP 113/62; PULSE 71; RESP 18; O2SAT 98
[2016-10-18 04:56] VITALS: PULSE 80
[2016-10-18 05:23] LABS: BASOPHILS % (AUTO) 0.2 % (0-3); EOSINOPHILS % (AUTO) 4.1 % (0-5); MONOCYTES % (AUTO) 6.4 % (4-12); Mean Corpuscular Hemoglobin 26.4 pg (27.0-35.0); Mean Corpuscular Volume 83.3 fL (81-100); NEUTROPHILS % (AUTO) 70.2 % (40-74); Platelet Count 142 bil/L (150-400)
[2016-10-18 05:29] VITALS: BP 123/55; PULSE 69; RESP 19; O2SAT 94
--- NOTE | 2016-10-18 06:17 | NUR ---
Tele/Restful Night Pt tele SR overnight, rate 60s-80s, no c/o chest pain/SOB Pt up independently to BR, right groin site stable, pt has easily palpable pedal pulse. Pt appeared to sleep comfortably overnight, no c/o pain other than some bach achiness which she stated is chronic and refused need for pain medication.
[2016-10-18 06:18] LABS: Magnesium 1.8 mg/dL (1.6-2.6)
[2016-10-18 08:00] VITALS: PULSE 76
[2016-10-18 08:45] VITALS: BP 117/46; PULSE 74; RESP 16; O2SAT 98
[2016-10-18] MEDS: Insulin Human REGular 300 Unit/3 mL Inj SUBQ SCH ×2 (09:06→12:05)
--- NOTE | 2016-10-18 09:13 | NUR ---
Groin/HR No pain or hematoma at right groin site. Per report pt converted to SR 10/18. EKG reports SR. Pt resting in bed. Care continues.
--- NOTE | 2016-10-18 09:32 | NUR ---
Xray Pt off floor for xray.
--- NOTE | 2016-10-18 09:57 | NUR ---
Back from Xray Pt back from Xray. Resting comfortably.
--- NOTE | 2016-10-18 10:47 | DRSVH ---
PROCEDURE: X-RAY CHEST, TWO VIEWS ([id number]) INDICATIONS: follow-up for basilar infiltrates TECHNIQUE: 2 views of the chest were acquired. COMPARISON: [facility], CR, XR CHEST 1VW (PORTABLE), 10/16/2016, 7:06. [facility], CR, CHEST 2VW, 10/01/2014, 16:22. FINDINGS: Surgical changes and devices: None. Lungs and pleura: Trace pleural effusions and no pneumothorax. Mild interstitial opacities have reso lved. Mediastinum: Mediastinal contours are normal. Heart size is normal. Bones and chest wall: No suspicious bony abnormalities. Soft tissues appear unremarkable. IMPRESSION: Resolved basilar interstitial opacities. Trace pleural effusions. Dictated by: Paulino SOUSA Interpreted: Dashawn Desai MD on 10/18/2016 at 10:44 Transcribed by: HANNY on 10/18/2016 at 10:46 Approved by: Donovan Desai M.D. on 10/18/2016 at 10:52
--- NOTE | 2016-10-18 11:15 | DRSVH ---
[facility] [address] [place] [address] Echocardiogram Report Name: DEANDRE CLIFTON MStudy Date: Height: 63 in Hospital Exam Location: [facility] Weight: 196 lb Gender: Female BSA: 1.9 m2 : 1940 Age: 76 yrs BP: 135/74 mmHg Reason For Study: Chest pain Ordering Physician: Mitchell Underwood Performed By: William Sanon Referring Physician: MITCHELL UNDERWOOD Interpretation Summary Left ventricular wall thickness is at the upper limits of normal. The ejection fraction is estimated to be 60-65%. There are no obvious focal wall motion abnormalities noted but poor endocardial definition reduces the sensitivity for the detection of such. The left atrium is severely dilated. There is moderate to severe mitral annular calcification. There is mild to moderate mitral stenosis. MVA of 1.7cm2, mean gradient 5.6mmHg There is mild mitral regurgitation. The aortic valve is mildly calcified. There is no hemodynamically significant valvular aortic stenosis. There is mild tricuspid regurgitation. The right ventricular systolic pressure is estimated at 38 mmHg assuming a right atrial pressure of 3 mm Hg. Procedure: A two-dimensional transthoracic echocardiogram with color flow and Doppler was performed. The study quality was technically adequate. Comparison is made with the echocardiogram of 10/05/2014. The study quality was technically good. There is no prior echocardiogram noted for this patient. The heart rate ranged between 68-89 bpm during the study. Left Ventricle: The left ventricle is normal in size. Left ventricular wall thickness is at the upper limits of normal. The ejection fraction is estimated to be 60-65%. There are no obvious focal wall motion abnormalities noted but poor endocardial definition reduces the sensitivity for the detection of such. Spectral Doppler of the mitral inflow yields an E/A ratio that is between 0.8 and 1.5. Right Ventricle: The right ventricle is normal in size and function. Atria: The left atrium is severely dilated. The right atrium is mildly dilated. The interatrial septum is intact with no evidence for an atrial septal defect. Mitral Valve: There is moderate to severe mitral annular calcification. There is mild to moderate mitral stenosis. MVA of 1.7cm2, mean gradient 5.6mmHg. There is mild mitral regurgitation. Aortic Valve: The aortic valve is trileaflet. The aortic valve is mildly calcified. There is no hemodynamically significant valvular aortic stenosis. There is trace aortic regurgitation. Tricuspid Valve: The tricuspid valve is normal in structure and function. There is mild tricuspid regurgitation. The right ventricular systolic pressure is estimated at 38 mmHg assuming a right atrial pressure of 3 mm Hg. Pulmonic Valve: The pulmonic valve is not well seen, but is grossly normal. There is trace pulmonic regurgitation. Great Vessels: The aortic root is normal size. The dimensions of the ascending aorta are normal. The pulmonary artery is not well visualized, but is probably normal size. The IVC is of normal diameter and collapses greater than 50% with a sniff. This suggests a low right atrial pressure of 3 mm Hg. Pericardium/ Pleura There is no pericardial effusion. There is no pleural effusion. MMode/2D Measurements & Calculations LVIDd: 4.7 cm LA dimension: 4.4 cm RA long axis LVOT diam LVIDs: 2.7 cm FS: 43.3 % LA A2 area: 31.6 cm RA area AoV Opening EPSS: 0.55 cm LA A4 area: 26.4 cm IVSd: 0.96 cm LA length (vol): 6.4 cm: 21.2 cm Ao root diam LVPWd: 1.1 cm LA vol: 110.3 ml RA vol LA vol index : 70.1 ml asc Aorta RA Diam: 3.4 cm : 36.6 mm2 IVC diam: 1.7 cm LV worthy. diameter/BSA LV sys. diameter/BSA RVD1 (basal) RVD2 (mid) (cm/m^2): 2.5 (cm/m^2): 1.4 : 4.1 cm TAPSE: 2.6 cm Doppler Measurements & Calculations Ao V2 max MV E max alli MV E/A: 1.2 TR max alli : 166.2 cm/sec : 187.7 cm/sec Pulm A Revs Dur : 293.3 cm/sec Ao max PG MV A max alli TR max PG : 11.1 mmHg : 156.8 cm/sec MV A dur: 0.11 sec : 34.5 mmHg Ao mean PG MV P1/2t: 96.2 msec PA V2 max : 121.8 cm/sec LVOT Max Alli MVA(VTI): 1.7 cm2 PA mean PG : 152.8 cm/sec PA Accel Time CHRISTINE(I,D): 2.6 cm : 0.11 sec sev ratio MV V2 mean MV P1/2t max alli Ao V2 mean LV V1 max PG : 108.6 cm/sec : 123.7 cm/sec MV mean PG MVA(P1/2t): 2.3 cm2 Ao V2 VTI: 36.0 cm LV V1 VTI CHRISTINE(V,D): 2.6 cm2 : 32.8 cm MV V2 VTI : 54.8 cm PA V2 mean CHRISTINE indexed to BSA Pulm A Revs Dur - MV A : 87.4 cm/sec (cm^2/m^2): 1.4 Dur: -0.00 msec PA pr(Accel) : 31.5 mmHg Electronically signed by: Marcos Moore on Reading Physician:10/18/2016 11:14 AM
--- NOTE | 2016-10-18 13:59 | PCM.DIMED ---
Discharge Instructions Date of Service October 18, 2016 Dates of Hospitalization October 16, 2016 at 11:43 Discharge Diagnosis Discharge Diagnosis Acute Myocardial Infarction Diet Heart Healthy, Diabetic Activity No restrictions (Patient may increase usual activity gradually as tolerated.) Patient Instructions Follow-up Provider: Whitney Bobby Follow-up with PCP in: 2 weeks Provider: Mayte Lao MD Follow-up in: 2 weeks Serg Milner MD October 18, 2016 13:59
[2016-10-18] MEDS ORDERED: ATOR40TA69 PO (14:04)
[2016-10-18] MEDS ORDERED: ALBU8.5H2 IH (14:04)
[2016-10-18] MEDS ORDERED: CLOP75TA28 PO (14:04)
[2016-10-18] MEDS ORDERED: LISI-571 PO (14:04)
[2016-10-18] MEDS ORDERED: METO25TA6 PO (14:04)
--- NOTE | 2016-10-18 15:35 | NUR ---
Discharge Pt discharged at approximately 1545 to home with niece and grandniece. Pt given Heart Attack, Angioblasty & Stent Booklets, educational material for Myocardial Infarction. Next dose to be taken of all medications clearly written and dated. Pt bilateral IV's DC'd with catheters intact, tele DC'd hvac service technician notified. Pt left with all personal belongings. Escorted by GAMBLING BOX PERSON in wheelchair to door.
--- NOTE | 2016-10-18 21:54 | PCM.DC.MED ---
Discharge Summary Date of Service October 18, 2016 Dates of Hospitalization Date of Hospital Admission October 16, 2016 at 11:43 Date of Discharge: October 18, 2016 Providers: Admitting Physician: Linnea Underwood MD Primary Care Physician: Whitney Bobby Attending Physician: Linnea Underwood MD Diagnosis at Time of Discharge Diagnosis at Time of Discharge Acute Myocardial Infarction Consultations Cardiology with Dr. Haro and Dr. Underwood Procedures XRay, CTs & MRIs PROCEDURE: X-RAY CHEST ONE VIEW, PORTABLE ([id number]) INDICATIONS: CHEST PAIN TECHNIQUE: One view of the chest was acquired. COMPARISON: [facility], , CHEST 1VW (PORTABLE), 11/07/2010, 16:02. FINDINGS: Surgical changes and devices: None. Lungs and pleura: No pleural effusions or pneumothorax. Interstitial pulmonary opacities inferiorly consistent with scarring, atelectasis, or less likely infection. No lobar consolidation.. Mediastinum: Mediastinal contours appear normal. Heart size is normal. Bones and chest wall: No suspicious bony lesions. Overlying soft tissues appear unremarkable. IMPRESSION: Bibasilar interstitial opacities consistent with scarring, fibrosis , less likely early infection. Otherwise normal chest. Dictated by: Tello Yee M.D. on 10/16/2016 at 8:22 Approved by: Tello Yee M.D. on 10/16/2016 at 8:24 Cardiac Echo Impression Echocardiogram Report Name: DEANDRE CLIFTON MStudy Date: Height: 63 in Hospital Exam Location: [facility] Weight: 196 lb Gender: Female BSA: 1.9 m2 : 1940 Age: 76 yrs BP: 135/74 mmHg Reason For Study: Chest pain Ordering Physician: Linnea Underwood Performed By: William Sanon Referring Physician: LINNEA UNDERWOOD Interpretation Summary Left ventricular wall thickness is at the upper limits of normal. The ejection fraction is estimated to be 60-65%. There are no obvious focal wall motion abnormalities noted but poor endocardial definition reduces the sensitivity for the detection of such. The left atrium is severely dilated. There is moderate to severe mitral annular calcification. There is mild to moderate mitral stenosis. MVA of 1.7cm2, mean gradient 5.6mmHg There is mild mitral regurgitation. The aortic valve is mildly calcified. There is no hemodynamically significant valvular aortic stenosis. There is mild tricuspid regurgitation. The right ventricular systolic pressure is estimated at 38 mmHg assuming a right atrial pressure of 3 mm Hg. Brief History The patient is a pleasant 76-year-old white female with a history of hypertension, high cholesterol, uncontrolled diabetes and history of balloon angioplasty to the ostial RCA who rarely sleeps at night and was up early in the morning getting ready to clean cantaloupe for lunch for her family. Patient then felt more fatigued and he usual and began experiencing crushing substernal chest pain after drinking some cold water while standing in the kitchen. The patient felt she was going to pass out so she called 911 and called her son Magan. The patient took 481 mg aspirin and EMS services brought the patient to [facility] emergency room. The patient was found to have an acute inferior wall myocardial infarction and EKG was taken for an urgent cardiac catheterization by Dr. Haro the patient underwent successful intervention on the infarct-related circumflex. She also has an ostial RCA lesion and this was felt to be best dealt with at a later date. The patient was admitted to the PCC unit and the hospitalist service was consulted for evaluation and treatment recommendations. Hospital Course The patient is a pleasant 76-year-old white female with a history of hypertension, high cholesterol, uncontrolled diabetes and history of balloon angioplasty to the ostial RCA who rarely sleeps at night and was up early in the morning getting ready to clean cantaloupe for lunch for her family. Patient then felt more fatigued and he usual and began experiencing crushing substernal chest pain after drinking some cold water while standing in the kitchen. The patient felt she was going to pass out so she called 911 and called her son Magan. The patient took 481 mg aspirin and EMS services brought the patient to [facility] emergency room. The patient was found to have an acute inferior wall myocardial infarction and EKG was taken for an urgent cardiac catheterization by Dr. Haro the patient underwent successful intervention on the infarct-related circumflex. She also has an ostial RCA lesion and this was felt to be best dealt with at a later date. The patient was admitted to the PCC unit and the hospitalist service was consulted for evaluation and treatment recommendations. # Acute inferior-posterior wall ST elevated myocardial infarction, present at the time of admission. Active - Status post successful intervention on the infarct-related circumflex artery. With 2 drug-eluting stents placed in the circumflex and obtuse marginal by Dr. Haro. - Patient also has an ostial RCA lesion which cardiology feels need to be dealt with at a later date. - Post intervention care and stenting per cardiology. I have discussed case with Dr. Underwood - Continue telemetry monitoring # Paroxysmal atrial fibrillation 2 nights ago, resolved. - Continue close observation with telemetry monitoring overnight - Patient asymptomatic during the episode. # Hypertension - Continue cardiac meds per Dr. Underwood # Hyperlipidemia - Continue statin # Uncontrolled diabetes - Diabetic diet - Sliding-scale insulin coverage - Now that the patient is eating her normal diet will restart her home Lantus insulin 50 units subcutaneous daily at bedtime. # Tobacco abuse - She will be encouraged to quit tobacco # History of asthma - Close observation - We will continue albuterol treatments. Thank you very much for this very interesting consultation. We will follow. Disposition: Patient will likely be discharged home today. Exam Vital Signs (Last) Date Time Temp Pulse Resp B/P Pulse Ox O2 Delivery O2 Flow Rate FiO2 10/18/16 08:45 37.1 74 16 117/46 98 Room Air 10/16/16 15:37 2.00 Exam General: Patient is in no apparent distress. She was on the phone with the kitchen ordering her dinner and tomorrow's breakfast from the menu. HEENT: Head is atraumatic and normocephalic. Eyes: Pupils are equally round and reactive to light and accommodation. Extraocular muscles are intact. Sclera are white, anicteric. Subconjunctival mucosa is pink. Ears and nose are unremarkable. Oropharynx: There is no mucosal lesions, there is no thrush, there is no pharyngitis. Neck: Is supple, there are no nodes, or masses or tenderness. Chest: Is clear to auscultation and percussion. There are no rales, rhonchi, wheezes or rubs. Heart: Rate, rhythm is regular. There is a 2/6 systolic ejection murmur heard best at the left sternal border. There is no rub or gallop. Abdomen: Good bowel sounds are present. Abdomen is obese, soft, nontender, no organomegaly or masses were appreciated. Extremities: Are symmetrical and well perfused. There is no edema, there is no cellulitis, no rash. Neurologic: There are no focal neurological deficits. Cranial nerves II through XII are intact. There are no sensory or motor deficits. Psychiatric: Patients mood is calm and shows no sign of agitation. Genital: Deferred Rectal: Deferred Test 10/16/16 07:07 10/16/16 07:25 10/18/16 04:42 Hemoglobin A1c 7.9% (4.8-5.6) Troponin T 0.010ug/L (0.0-0.011) Prothrombin Time 10.3sec (8.1-12.5) Prothromb Time International Ratio 0.96ratio Activated Partial Thromboplast Time 22.2sec (22.8-33.0) White Blood Count 8.8th/mm3 (3.8-10.1) Red Blood Count 4.25mil/mm3 (3.90-5.20) Hemoglobin 11.2g/dL (12.0-15.6) Hematocrit 35.4% (35.0-46.0) Mean Corpuscular Volume 83.3fL (81-100) Mean Corpuscular Hemoglobin 26.4pg (27.0-35.0) Mean Corpuscular Hemoglobin Concent 31.6% (32.0-37.0) Red Cell Distribution Width 16.4% (12.3-15.4) Platelet Count 142bil/L (150-400) Neutrophils (%) (Auto) 70.2% (40-74) Lymphocytes (%) (Auto) 18.8% (14-46) Monocytes (%) (Auto) 6.4% (4-12) Eosinophils (%) (Auto) 4.1% (0-5) Basophils (%) (Auto) 0.2% (0-3) Sodium Level 140mEq/L (134-144) Potassium Level 4.4mEq/L (3.5-5.2) Chloride Level 102mEq/L (97-108) Carbon Dioxide Level 21mmol/L (18-29) Blood Urea Nitrogen 15mg/dL (8-27) Creatinine 0.96mg/dL (0.57-1.00) Estimat Glomerular Filtration Rate 81mL/min (>59) Glucose Level 162mg/dL (60-99) Calcium Level 9.3mg/dL (8.5-10.1) Magnesium Level 1.8mg/dL (1.6-2.6) Total Bilirubin 0.4mg/dL (0.0-1.2) Aspartate Amino Transf (AST/SGOT) 29U/L (0-50) Alanine Aminotransferase (ALT/SGPT) 17U/L (0-32) Alkaline Phosphatase 85U/L (25-165) Pro-B-Type Natriuretic Peptide 1126pg/mL (0-738) Total Protein 6.1g/dL (6.4-8.4) Albumin 3.6g/dL (3.4-5.0) Discharge Medications Discharge Medications Aspirin (Aspirin) 81 Mg Tablet 81 MG PO DAILY (Reported) Atorvastatin Calcium (Atorvastatin Calcium) 40 Mg Tablet 40 MG PO HS Prescribed by: EDDIE MILNER MD Celecoxib (Celebrex) 200 Mg Capsule 200 MG PO HS (Reported) Cetirizine HCl (24Hour Allergy) 10 Mg Tablet 10 MG PO DAILY (Reported) Cholecalciferol (Vitamin D3) (Vitamin D3) 5,000 Unit Tablet 10,000 UNIT PO HS ( Reported) Clopidogrel (Clopidogrel) 75 Mg Tablet 75 MG PO DAILY Prescribed by: EDDIE MILNER MD Cranberry Fruit (Cranberry) 400 Mg Tablet 400 MG PO HS (Reported) Folic Acid (Folic Acid) 0.4 Mg Tablet 0.4 MG PO every other day (Reported) Insulin Glargine (Lantus U100 Solostar Insulin Pen) 100 Unit/1 Ml Insuln.pen 50 UNITS SUBQ QPM-INSULIN (Reported) Insulin Lispro (HumaLOG U100 Insulin Pen) 100 Unit/1 Ml Insuln.pen Unknown Dose SUBQ TID-INSULIN (Reported) Blood Sugar Lispro Correction <151 0 units 151-175 1 unit 176-200 2 units 201-225 3 units 226-250 4 units 251-275 5 units 276-300 6 units 301-325 7 units 326-350 8 units 351-375 9 units 376-400 10 units >400 12 units Check blood sugars before meals and at bedtime. Use correction factor only before meals. Levothyroxine (Levothyroxine) 112 Mcg Tablet 112 MCG PO DAILY (Reported) Lisinopril (Lisinopril) 5 Mg Tablet 5 MG PO DAILY@17 Prescribed by: EDDIE MILNER MD Magnesium (Magnesium) 250 Mg Tablet 250 MG PO DAILY (Reported) Metformin ER (Metformin ER) 500 Mg Tab.er.24 1,000 MG PO DAILYWD (Reported) Metoprolol Tartrate (Metoprolol Tartrate) 25 Mg Tablet 25 MG PO BID Prescribed by: EDDIE MILNER MD Nortriptyline (Nortriptyline) 10 Mg Capsule 30 MG PO HS (Reported) Ubidecarenone (Coq-10) 30 Mg Capsule 60 MG PO DAILY (Reported) As needed Albuterol HFA (Proair HFA) 8.5 Gm Hfa.aer.ad 2 PUFFS IH Q4 PRN PRN For Wheezing Prescribed by: EDDIE MILNER MD Meclizine (Bonine) 25 Mg Tab.chew 25 MG PO TID PRN PRN For Dizziness (Reported) Nitroglycerin SL (Nitrostat) 0.4 Mg Tab.subl 0.4 MG SL Q5MIN PRN PRN For Chest Pain (Reported) Followup Plan Disposition: Patient is being discharged home. Discharge Diet: Heart Healthy, Diabetic Discharge Activity: No restrictions Follow-up Provider: Whitney Bobby Follow-up with PCP in: 2 weeks Provider: Mayte Lao MD Follow-up in: 2 weeks Time spent Time spent on discharging this patient was greater than 35 minutes, over half of which was involved in counseling and coordination of care. Serg Milner MD October 18, 2016 21:54
== END 2016-10-18 15:35 | disposition home or self-care (01) | DRG 247 ==
LOC: SED 07:05 → PCC 07:48 → SOUO 09:45 → PCC 11:43
PROVIDERS: ADMIT Internal Medicine Cardiovascular Disease; ATTEND Internal Medicine Infectious Disease
PROC: 027034Z Dilation of Coronary Artery, One Artery with Drug-eluting Intraluminal Device, Percutaneous Approach (ICD-10-PCS; principal; 2016-10-16)
PROC: 4A023N7 Measurement of Cardiac Sampling and Pressure, Left Heart, Percutaneous Approach (ICD-10-PCS; 2016-10-16)
PROC: B2111ZZ Fluoroscopy of Multiple Coronary Arteries using Low Osmolar Contrast (ICD-10-PCS; 2016-10-16)
DX: I21.19 ST elevation (STEMI) myocardial infarction involving other coronary artery of inferior wall (principal); I10 Essential (primary) hypertension; E78.5 Hyperlipidemia, unspecified; E11.65 Type 2 diabetes mellitus with hyperglycemia; Z79.4 Long term (current) use of insulin; Z98.61 Coronary angioplasty status; Z79.82 Long term (current) use of aspirin; G47.33 Obstructive sleep apnea (adult) (pediatric); Z87.891 Personal history of nicotine dependence; J45.909 Unspecified asthma, uncomplicated; I48.0 Paroxysmal atrial fibrillation; I25.10 Atherosclerotic heart disease of native coronary artery without angina pectoris

== ENCOUNTER 2016-12-06 00:20 | Day surgery (SDC) | payer MEDICARE ==
[2016-12-06] VITALS (15 sets, daily range): BP systolic 103–163; BP diastolic 35–94; PULSE 63–69; RESP 15–17; O2SAT 95–98
[~2016-12-06] VITALS: Ht 160 cm; Wt 81.2 kg
[~2016-12-06 00:20] MED LIST changes: -AMLO10TA3 PO; -ASPI-628 PO; +ASPI-973 PO; -ATEN25TA PO; -ATOR20TA65 PO; +ATOR40TA69 PO; -BENA40TA2 PO; -CALC-721 PO; +CETI-343 PO; -CETI10TA18 PO; +CLOP75TA28 PO; -HYDR12.5 PO; -Heparin 5,000 Unit/mL Inj ONE; +LISI-571 PO; -MAGN250T PO; +MAGN250T2 PO; -MECL-107 PO; +MECL-114 PO; +METO25TA6 PO; -Ondansetron 2 mg/mL 2 mL Inj ONE
[2016-12-06] MEDS ORDERED: fentaNYL-PF 50 mCg/mL 2 mL Inj ONE (00:21)
[2016-12-06] MEDS ORDERED: Propofol 10,000 mCg/mL 20 mL Inj ONE (00:21)
[2016-12-06] MEDS ORDERED: Lactated Ringer's 1,000 ML IV SCH ×2 (05:00→13:01)
[2016-12-06] MEDS ORDERED: Lactated Ringer's 1,000 ML IV ONE (07:45)
[2016-12-06 08:28] LABS: BASOPHILS % (AUTO) 0.3 % (0-3); EOSINOPHILS % (AUTO) 4.7 % (0-5); MONOCYTES % (AUTO) 5.6 % (4-12); Mean Corpuscular Hemoglobin 26.5 pg (27.0-35.0); Mean Corpuscular Volume 83.1 fL (81-100); NEUTROPHILS % (AUTO) 66.1 % (40-74); Platelet Count 152 bil/L (150-400)
--- NOTE | 2016-12-06 08:40 | PCM.HPANE ---
Patient Data Surgeon Admitting Provider: Attending Provider:Nikki Rowe MD Primary Care Physician:Whitney Bobby Other Provider:Tammy Jaquez Anesthesia Reason for Visit [facility] Cor Art W Oth Ang P Ht/WT & BMI Body Mass Index Allergies Coded Allergies: Penicillins (Verified Allergy, Severe, RASH, 10/07/14) Sulfa (Sulfonamide Antibiotics) (Verified Allergy, Severe, RASH, 10/07/14) clindamycin (Unverified Allergy, Mild, 10/07/14) Uncoded Allergies: SULFA (Allergy, Severe, RASH, 04/05/09) UNKNOWN (Allergy, Mild, 09/09/14) TOOK ANTIBIOTIC, UNSURE OF NAME, GOT RASH. PT WILL CONFIRM Past Anesthesia History Anesthesia History: Positive for:: Anesthesia Reactions (NAUSEA) Diabetes History Hx Diabetes?: Yes MRSA MRSA: No Medications Active Scripts Metoprolol Tartrate 25 Mg Mhmqwu91 Mg PO BID #60 TABLET Prov:Serg Milner MD 10/18/16 Lisinopril 5 Mg Tablet5 Mg PO DAILY@17 #30 TABLET Prov:Serg Milner MD 10/18/16 Atorvastatin Calcium 40 Mg Ayhzbc25 Mg PO HS #30 TABLET Prov:Serg Milner MD 10/18/16 Clopidogrel 75 Mg Bwqxwg63 Mg PO DAILY #30 TABLET Prov:Serg Milner MD 10/18/16 Albuterol HFA (Proair HFA)8.5 Gm Hfa.aer.ad2 Puffs IH Q4 PRN For Wheezing #1 INHALER Prov:Serg Milner MD 10/18/16 Reported Medications Meclizine (Bonine)25 Mg Tab.chew25 Mg PO TID PRN For Dizziness 10/17/16 Cetirizine HCl (24Hour Allergy)10 Mg Sidvvh02 Mg PO DAILY 10/17/16 Aspirin 81 Mg Kdxhea92 Mg PO DAILY Ref 0 10/17/16 Cholecalciferol (Vitamin D3) (Vitamin D3)5,000 Unit Tablet5,000 Unit PO HS 09/08/14 Nortriptyline 10 Mg Zvbekgq42 Mg PO HS 30 Days 09/08/14 Nitroglycerin SL (Nitrostat)0.4 Mg Tab.subl0.4 Mg SL Q5MIN PRN For Chest Pain # 1 BOTTLE 4/1/15 Metformin ER 500 Mg Tab.er.241,000 Mg PO DAILYWD 30 Days Ref 0 09/08/14 Magnesium 250 Mg Uxufnt132 Mg PO DAILY 09/08/14 Levothyroxine 112 Mcg Tfkfnj200 Mcg PO DAILY For Thyroid Replacement #30 TABLET Ref 0 09/08/14 Insulin Glargine (Lantus U100 Solostar Insulin Pen)100 Unit/1 Ml Insuln.pen50 Units SUBQ QPM-INSULIN #1 PENINJ Ref 0 09/08/14 Insulin Lispro (HumaLOG U100 Insulin Pen)100 Unit/1 Ml Insuln.ggt99-24 SUBQ TID -INSULIN #1 PENINJ Ref 0 Blood Sugar Lispro Correction <151 0 units 151-175 1 unit 176-200 2 units 201-225 3 units 226-250 4 units 251-275 5 units 276-300 6 units 301-325 7 units 326-350 8 units 351-375 9 units 376-400 10 units >400 12 units Check blood sugars before meals and at bedtime. Use correction factor only before meals. 09/08/14 Folic Acid 0.4 Mg Tablet0.4 Mg PO every other day 09/08/14 Cranberry Fruit (Cranberry)400 Mg Kqffxh984 Mg PO HS 09/08/14 Ubidecarenone (Coq-10)30 Mg Ousegvl22 Mg PO DAILY 09/08/14 Celecoxib (Celebrex)200 Mg Epluybn843 Mg PO HS #30 CAPSULE Ref 0 09/08/14 History History of ENT Problems?: Yes HEENT History: Positive for:: Cataracts (REMOVED BILATERALLY) Sinus Problem Denies:: Dysphagia Denture Type: None Teeth Condition: Within Normal Limits Hx of Heart Problems?: Yes Cardiovascular History: Positive for:: Cardiac Surgery (angioplasty) Chest Pain Edema Heart Murmur Hypertension Irregular Heartbeat Denies:: Congestive Heart Failure Pacemaker Thrombophlebitis Hx of Respiratory Problem?: Yes Respiratory History: Positive for:: Asthma Dyspnea Denies:: COPD Chest Surgery Emphysema Hemoptysis Pneumonia Hx Neurologic Problems?: Yes Neurological History: Positive for:: Dizziness Headaches Denies:: Alzheimer's Disease CVA Dementia Parkinson's Disease Seizures Hx of GI Problems?: Yes Hx of Problems?: Yes Genitourinary History: Positive for:: Urinary Tract Infection (FREQUENT) Denies:: HX of Hemodialysis Kidney Stones HX of Peritoneal Dialysis: No Female Hx: Positive for:: Problems with Breasts? (RIGHT BREAST BIOPSY BENIGN) Denies:: Currently Endometriosis Pelvic Inflammatory Hx Musculoskeletal Problems?: Yes Musculoskeletal History: Positive for:: Back Injury Denies:: Joint Replacement Musculoskeletal Trauma Hx of Psycho/Social Problems?: No Psycho Social History: Positive for:: Hx Depression (SITUATIONAL. HAS SOME THOUGHTS OF HARMING HERSELF) Denies:: Anxiety Bipolar Disorder Suicide Attempt Hx Surgeries?: Yes (BILATERALY ARTHROSCOPY,RIGHT WRIST SURGERY,T+A, BILATERAL BUNIONECTOMIES) Hx Any Other Health Problems?: Yes Other History: Positive for:: Hospitalization (colitis) Thyroid Disease Denies:: Cancer History Blood Transfusions: Denies:: Blood Transfuse Reaction Blood Transfusions Hx Diabetes: Yes Hx Alcohol Use: Yes (rare social drinker)Hx Substance Use: No Smoking Status: Former Smoker Have You Smoked inLast 12 mo: No Stop/Bang Risk Assessment Category Category 1A: Patient has history of documented sleep apnea, and HAS NOT received any narcotic, sedative or anesthesia administration during this stay. Category 1B: Patient has history of documented sleep apnea, and HAS received any narcotic , sedative or anesthesia administration during this stay Category 2: Patient has SUSPECTED Obstructive Sleep Apnea, and HAS received any narcotic , sedative or anesthesia administration during this stay. Category 3: Patient has SUSPECTED Obstructive Sleep Apnea and HAS NOT received narcotic, sedative or anesthesia administration during this stay. Category 4: Outpatient in Procedural Areas with known sleep apnea or who screen positive for High Risk via the STOP/BANG questionnaire. Exam Exam General Appearance: Alert, Oriented X3, Cooperative, Moderate Distress HEENT/AIRWAY: MP 2, Neck Movement (from), Mouth Opening (wnl) Lungs: Clear to Auscultation Heart: Exam Unremarkable Meds/Labs/Diagnostics Labs Test 12/06/16 08:25 White Blood Count 7.9th/mm3 (3.8-10.1) Red Blood Count 4.68mil/mm3 (3.90-5.20) Hemoglobin 12.4g/dL (12.0-15.6) Hematocrit 38.9% (35.0-46.0) Mean Corpuscular Volume 83.1fL (81-100) Mean Corpuscular Hemoglobin 26.5pg (27.0-35.0) Mean Corpuscular Hemoglobin Concent 31.9% (32.0-37.0) Red Cell Distribution Width 16.4% (12.3-15.4) Platelet Count 152bil/L (150-400) Neutrophils (%) (Auto) 66.1% (40-74) Lymphocytes (%) (Auto) 23.2% (14-46) Monocytes (%) (Auto) 5.6% (4-12) Eosinophils (%) (Auto) 4.7% (0-5) Basophils (%) (Auto) 0.3% (0-3) Plan Impression Patient chart reviewed, patient interviewed and anesthestic plan with risks, benefits, and alternatives discussed, and informed consent obtained. ASA Physical Status: ASA2 Mod Systemic Disease Anesthetic Plan: GA Bene/Risks/Altern/Consents: Yes HP Complete Prior to Induction: Yes Ceasar Marion MD Dec 06, 2016 08:40
[2016-12-06] MEDS ORDERED: Heparin 1,000 Units/500 mL NS Premix IV ONE (09:47)
[2016-12-06] MEDS ORDERED: Heparin 10,000 Unit/1,000 mL NS Premix IV ONE (09:47)
[2016-12-06] MEDS ORDERED: Heparin 1,000 Unit/mL 10 mL Inj ONE ×2 (10:03→11:45)
[2016-12-06] MEDS ORDERED: Atropine 1 mg/10 mL (Code) Syringe ONE (10:03)
[2016-12-06] MEDS ORDERED: Nitroglycerin 50,000 mcg/250 mL D5W Premix IV ONE (11:00)
[2016-12-06] MEDS ORDERED: Phenylephrine/NS-PF 100 mCg/mL 5 mL Syringe IVPUSH ONE (11:18)
[2016-12-06] MEDS ORDERED: Ondansetron 2 mg/mL 2 mL Inj IVPUSH PRN (13:05)
[2016-12-06] MEDS ORDERED: MetoCLOpramide 5 mg/mL 2 mL Inj IVPUSH PRN (13:05)
--- NOTE | 2016-12-06 13:08 | PCM.ANEP1 ---
Post Anesthesia PACU Phase 1 Assessment Vital Signs Vital Signs Date Time Temp Pulse Resp B/P Pulse Ox O2 Delivery O2 Flow Rate FiO2 12/06/16 12:43 65 15 113/94 97 Nasal Cannula 4.00 12/06/16 12:43 64 15 113/94 12/06/16 12:35 65 15 111/51 97 Nasal Cannula 4.00 12/06/16 12:35 65 15 111/51 12/06/16 12:30 68 15 111/50 12/06/16 12:30 68 15 111/50 97 Nasal Cannula 4.00 12/06/16 09:07 64 17 109/63 12/06/16 09:06 36.8 68 17 109/63 95 Room Air Anesthetic Administered: GA Level of Alertness: Awake, talking CLAYTON's with Equal Strength: Yes Pain: No Nausea or Vomiting: No CV Function & Hydration Stable: Yes Airway Device: Oxygen Delivery: Nasal Cannula Lungs: Normal Air Movement PACU Phase 2 Assessment Complications: No Follow up Care: No Patient Instructions Provided: N/A Ceasar Marion MD Dec 06, 2016 13:08
--- NOTE | 2016-12-06 13:26 | DI95 ---
[address] [address] INTERVENTIONAL CARDIAC CATHETERIZATION PATIENT: DEANDRE CLIFTON : 1940 MR#: [id number] ADMIT: 12/06/2016 JOB ID: [id number] DATE OF PROCEDURE: 12/06/2016 PATIENT PROFILE: The patient is a 76-year-old woman with history of diabetes, hypertension, and dyslipidemia. She presented with acute posterior myocardial infarction last month and underwent stent placement to the circumflex artery. She was found to have critical ostium right coronary artery stenosis at that time. PROCEDURE: Balloon angioplasty and stenting to the ostium right coronary artery. VASCULAR CLOSURE DEVICE: Perclose. COMPLICATION: None. DETAILS OF PROCEDURE: Conscious sedation was provided by Dr. Darci Doe. Vascular access was obtained from the right groin under 1% lidocaine local anesthesia using a 7-Czech sheath. This was performed under ultrasound guidance. A 7-Czech IM guide with side hole was advanced to the right coronary ostium. A Runthrough wire was placed inside right coronary artery. The ostium right coronary artery lesion was pre-dilated with 2.0 and 3.0 x 15 mm balloon. A Xience 3.0 x 12 mm stent was placed at the right ostium lesion with part of the stent up into the ascending aorta. It was deployed at 20 atmospheres for 20 seconds. A 3.5 x 8 mm balloon was used for post stent deployment dilation. It was inflated up to 20 atmospheres. The angiogram at this point showed residual stenosis. A 4.0 x 15 mm balloon was then used for post stent deployment dilation. It was inflated up to 14 atmospheres. Final angiogram was obtained. Angiogram was performed before sheath removal, hemostasis was achieved by using a Perclose device. The patient tolerated the procedure well. She was transferred to [facility] in good condition. TOTAL CONTRAST USED: 120 cc. FLUOROSCOPY TIME: 10.9 minutes. RESULTS: Successful balloon angioplasty and stenting to the right coronary artery ostium lesion by deploying one occluding stent, 3.0 x 12 mm. A 4.0 mm balloon was used for post stent deployment dilation. The final angiographic result is good. There is residual 30% stenosis.
[2016-12-06] MEDS ORDERED: 0.9% Sodium Chloride 250 ML BOLUS IV PRN (14:55)
[2016-12-06] MEDS ORDERED: Sodium Chloride LOK Flush 10 mL Syringe IVFLUSH PRN (14:55)
[2016-12-06] MEDS ORDERED: 0.9% Sodium Chloride 400 ML (4 HRS) IV ONE (14:55)
[2016-12-06] MEDS ORDERED: Atropine 1 mg/10 mL (Code) Syringe IVPUSH PRN (14:55)
--- NOTE | 2016-12-06 15:36 | NUR ---
Transfer Pt transferred by [facility] from [facility] at 1515. Pt stable and w/o complaints. Tele placed. VSS. Right groin w/o hematoma and CMS intact to RLE. Pt denies chest pain or SOB. Per report received and ate lunch and tolerated in [facility]. Taking po. Oriented pt and family to room. Discussed groin precautions and signs/symptoms to report. On bedrest until 1630. Lim to gravity drainage.
[2016-12-06] MEDS ORDERED: Albuterol 2.5 mg/3 mL Inhalation Solution NEB PRN (15:55)
[2016-12-06 17:02] LABS: APPEARANCE,URINE CLEAR (CLEAR,HAZY); COLOR,URINE STRAW (YELLOW); OCCULT BLOOD,URINE TRACE (NEGATIVE); PH,URINE 5.5 (5.0-8.0); UROBILINOGEN,URINE NORMAL (NORMAL)
[2016-12-06] MEDS: Insulin LISPRO 300 Unit/3 mL Inj SUBQ SCH ×2 (18:13→21:56)
--- NOTE | 2016-12-06 18:54 | NUR ---
Status Pt stable and able to dangle at edge of bed for dinner. Right groin stable. Denies pain aside from minor back discomfort at baseline. Will continue to monitor.
[2016-12-06] MEDS ORDERED: Insulin GLARgine 100 Unit/mL Syringe SUBQ SCH (21:00)
[2016-12-07] VITALS (7 sets, daily range): BP systolic 125–153; BP diastolic 59–74; PULSE 62–70; RESP 14–20; O2SAT 94–98
[2016-12-07 03:10] LABS: Mean Corpuscular Hemoglobin 26.2 pg (27.0-35.0); Mean Corpuscular Volume 84.3 fL (81-100)
--- NOTE | 2016-12-07 05:35 | NUR ---
2004 Telemetry/Pain Pt alert and oriented x3. Anxious at times. Telemetry SR 60s. No c/o chest pain. She c/o chronic back pain and reports some effectiveness from Tylenol. Pt dangle during dinner last night. Enc to increase activity and enc to remove Lim tonight. Pt prefers to remove Lim in the am. Right groin cdi. No hematoma noted. No oozing/bleeding. Bruising around the site noted.
--- NOTE | 2016-12-07 10:33 | NUR ---
Status VSS. Pt up easily OOB and gait steady. Right groin stable. Voiding spontaneously after avila removal. Eating and drinking well.
--- NOTE | 2016-12-07 10:38 | DIS ---
[address] [address] DISCHARGE SUMMARY PATIENT: DEANDRE CLIFTON : 1940 MR#: [id number] ADMIT: 12/06/2016 JOB ID: [id number] DIS: ADMITTING DIAGNOSES: Dyspnea on exertion, angina equivalent. DISCHARGE DIAGNOSIS: Dyspnea on exertion, angina equivalent. SECONDARY DIAGNOSES: 1. Recent posterior myocardial infarction on October 16, 2016. 2. Diabetes mellitus. 3. Hypertension. 4. Hypercholesterolemia. 5. Prior history of tobacco use. 6. Obesity with body mass index of 31.7 kg/m2. 7. Bilateral carotid artery stenosis. PROCEDURE: Balloon angioplasty and stenting to the right coronary ostium. COMPLICATIONS: None. HISTORY: Please see detailed history in the accompanying office note dated November 27, 2016. The patient presented to [facility] for elective intervention procedure to the right coronary ostium. A Xience 3.0 x 12 mm stent was deployed at that location. A 4.0 mm balloon was used for post stent deployment dilation. The final angiographic result was good. The patient tolerated the procedure well. She was discharged from the hospital on the following day in good condition. She will follow up with in 3-4 weeks. She was referred to outpatient cardiac rehab. Her medication remained the same.
--- NOTE | 2016-12-07 12:51 | NUR ---
Discharge Pt dc'd in WC with [employer] at 1235 w/o complaints or concerns. All discharge paperwork and instructions reviewed and pt verbalized understanding. All belongings with pt.
== END 2016-12-07 12:30 | disposition home or self-care (01) ==
LOC: SOUO 00:20 → PCC 14:58 → SOUO 12-07 12:30
PROVIDERS: ATTEND Internal Medicine Interventional Cardiology
DX: I25.119 Atherosclerotic heart disease of native coronary artery with unspecified angina pectoris (principal); I21.29 ST elevation (STEMI) myocardial infarction involving other sites; E66.9 Obesity, unspecified; E78.00 Pure hypercholesterolemia, unspecified; E11.42 Type 2 diabetes mellitus with diabetic polyneuropathy; E11.3299 Type 2 diabetes mellitus with mild nonproliferative diabetic retinopathy without macular edema, unspecified eye; E11.22 Type 2 diabetes mellitus with diabetic chronic kidney disease; I12.9 Hypertensive chronic kidney disease with stage 1 through stage 4 chronic kidney disease, or unspecified chronic kidney disease; N18.3 Chronic kidney disease, stage 3 (moderate); G47.33 Obstructive sleep apnea (adult) (pediatric); E03.9 Hypothyroidism, unspecified; I65.23 Occlusion and stenosis of bilateral carotid arteries; Z95.5 Presence of coronary angioplasty implant and graft; Z79.84 Long term (current) use of oral hypoglycemic drugs; Z79.02 Long term (current) use of antithrombotics/antiplatelets; Z79.4 Long term (current) use of insulin; Z87.891 Personal history of nicotine dependence; Z68.31 Body mass index [BMI] 31.0-31.9, adult
CPT/HCPCS: 36415; 80048; 81000; 85025; 85027; 87077; 87086; 87088; 87186; 93005; 94799; C1725; C1760; C1769; C1874; C1887; C9600; J1644; J1815; J2250; J3010; J7030; Q9967